=== PATIENT | male | born 1980 | race Caucasian/White ===

== ENCOUNTER 2021-12-14 14:46 | Emergency (ER) | payer MEDICAID ==
[~2021-12-14] VITALS: Ht 165.1 cm; Wt 93.2 kg
[2021-12-14 15:40] VITALS: BP 128/85
[2021-12-14] MEDS ORDERED: GENTAMICIN SULFATE 0.3% OPHTHALMIC SOLUTION 5 ML OD ONE (15:45)
[2021-12-14] MEDS ORDERED: ACETAMINOPHEN 500 MG TABLET PO ONE (15:45)
== END 2021-12-14 15:50 | disposition home or self-care (01) ==
LOC: EMS 14:46
DX: H10.9 Unspecified conjunctivitis (principal)
CPT/HCPCS: 99283